=== PATIENT | male | born 1950 | race Caucasian/White ===

== ENCOUNTER 2019-05-21 09:57 | Outpatient (CLI) | payer OTHER | END 2019-05-21 19:21 | disposition home or self-care (01) | LOC: SRD 09:57 | PROVIDERS: ATTEND Internal Medicine | DX: I51.7 Cardiomegaly (principal); I70.90 Unspecified atherosclerosis | CPT/HCPCS: 71046-TC ==

== ENCOUNTER 2022-10-26 10:30 | Inpatient (IN) | payer OTHER ==
[~2022-10-26] VITALS: Ht 172.7 cm; Wt 89.4 kg
[2022-10-26 10:30] VITALS: BP_SYST 162
[2022-10-26 11:18] LABS: BASOPHILS % (AUTO) 0.3 % (0.0-2.0); EOSINOPHILS # (AUTO) 0.1 K/uL (0.0-0.4); EOSINOPHILS % (AUTO) 0.9 % (0.0-4.0); HEMATOCRIT 35.3 % (36-54); LYMPHOCYTES # (AUTO) 0.8 K/uL (1.0-5.5); LYMPHOCYTES % (AUTO) 9.4 % (20.5-51.5); MEAN CORPUSCULAR HEMOGLOBIN 29 pg (27-31); MEAN CORPUSCULAR HGB CONC 34 % (32-36); MEAN CORPUSCULAR VOLUME 87 fL (79.0-98.0); MONOCYTES # (AUTO) 0.5 K/uL (0.0-1.0); NEUTROPHILS # (AUTO) 6.8 K/uL (1.8-7.7); NEUTROPHILS % (AUTO) 83.4 % (40.0-70.0); PLATELET COUNT (AUTO) 197 K/uL (130-430); RED BLOOD CELL COUNT(AUTO) 4.08 MIL/uL (4.2-6.2); RED CELL DISTRIBUTION WIDTH 14.6 % (9.0-15.0); WHITE BLOOD COUNT (AUTO) 8.2 K/uL (4.8-10.8)
[2022-10-26 11:33] LABS: ANION GAP 10 (5-15); CALCIUM 8.7 mg/dL (8.4-11.0); CHLORIDE 107 mmol/L (98-107); CREATININE 1.29 mg/dL (0.55-1.30); GLUCOSE 137 mg/dL (70-99); UREA NITROGEN, BLOOD 22 mg/dL (8-21)
[2022-10-26] MEDS ORDERED: HYDR-4039 PO (11:46)
[2022-10-26] MEDS ORDERED: AMLO10TA88 PO (11:46)
[2022-10-26] MEDS ORDERED: FURO40TA5 PO (11:46)
[2022-10-26] MEDS ORDERED: FEBU40TA3 PO (11:46)
[2022-10-26] MEDS ORDERED: METO-542 PO (11:46)
[2022-10-26] MEDS ORDERED: CLOP75TA32 PO (11:46)
[2022-10-26] MEDS ORDERED: BECL10.62 INH (11:46)
[2022-10-26] MEDS ORDERED: FLUT1BLS11 PO (11:46)
[2022-10-26] MEDS ORDERED: SACU1TAB7 PO (11:46)
[2022-10-26] MEDS ORDERED: ATOR40TA68 PO (11:46)
[2022-10-26] MEDS ORDERED: POTA-197 PO (11:46)
[2022-10-26 11:51] LABS: INR 1.1 (0.80-1.20); PROTHROMBIN TIME 11.8 SECS (9.5-12.5)
[2022-10-26 11:52] LABS: ALANINE AMINOTRANSFERASE 28 U/L (12-78); ASPARTATE AMINOTRANSFERASE 22 U/L (10-37); PHOSPHORUS 3.7 mg/dL (2.7-4.5); TOTAL BILIRUBIN 2.5 mg/dL (0.0-1.0)
[2022-10-26] MEDS ORDERED: FUROSEMIDE 40 MG/4 ML VIAL IVP ONE (12:00)
[2022-10-26] MEDS ORDERED: ASPIRIN 81 MG TAB.CHEW PO ONE (12:15)
[2022-10-26] MEDS ORDERED: amLODIPine BESYLATE 10 MG TABLET PO ONE (15:00)
[2022-10-26] MEDS ORDERED: FUROSEMIDE 100 MG in D5W 90 ML IV ONE (15:30)
[2022-10-26 16:10] VITALS: BP_SYST 163
[2022-10-26 16:22] VITALS: BP_SYST 165
[2022-10-26] MEDS ORDERED: METOPROLOL TARTRATE 5 MG/5 ML VIAL IVP ONE (17:00)
[2022-10-26] MEDS ORDERED: FEBUXOSTAT PO SCH (17:15)
[2022-10-26 17:17] VITALS: BP_SYST 163
[2022-10-26 18:40] VITALS: BP_SYST 150
[2022-10-26 20:00] VITALS: BP_SYST 157
[2022-10-26] MEDS: APIXABAN 2.5 MG TABLET PO SCH (20:13)
[2022-10-26] MEDS: POTASSIUM CHLORIDE 20 MEQ TAB.PRT.SR PO SCH (20:13)
[2022-10-26] MEDS: ALBUTEROL SULFATE 0.083% 2.5 MG/3 ML VIAL.NEB INH SCH (20:14)
[2022-10-26] MEDS: SACUBITRIL/VALSARTAN 24 MG-26 MG 1 TABLET PO SCH (20:14)
[2022-10-26] MEDS: hydrALAZINE HCL 25 MG TABLET PO SCH (20:14)
[2022-10-26] MEDS: BUDESONIDE 0.5 MG/2 ML AMPUL.NEB INH SCH (20:15)
[2022-10-26] MEDS ORDERED: ACETAMINOPHEN 325 MG TABLET PO PRN (20:45)
[2022-10-26] MEDS ORDERED: SACUBITRIL PO SCH (21:00)
[2022-10-26] MEDS ORDERED: FLUTICASONE 250 mCg/SALMETEROL 50 mCg DISKUS W.DEV INH SCH (21:00)
[2022-10-26] MEDS ORDERED: VALSARTAN PO SCH (21:00)
[2022-10-27] VITALS (8 sets, daily range): BP systolic 135–174
[2022-10-27] MEDS: ALBUTEROL SULFATE 0.083% 2.5 MG/3 ML VIAL.NEB INH SCH ×4 (01:12→23:20)
[2022-10-27 05:56] LABS: BASOPHILS % (AUTO) 0.3 % (0.0-2.0); EOSINOPHILS # (AUTO) 0.1 K/uL (0.0-0.4); EOSINOPHILS % (AUTO) 0.6 % (0.0-4.0); HEMATOCRIT 34.4 % (36-54); HEMOGLOBIN 11.5 g/dL (14.0-18.0); LYMPHOCYTES # (AUTO) 0.9 K/uL (1.0-5.5); LYMPHOCYTES % (AUTO) 9.1 % (20.5-51.5); MEAN CORPUSCULAR HEMOGLOBIN 29 pg (27-31); MEAN CORPUSCULAR HGB CONC 34 % (32-36); MEAN CORPUSCULAR VOLUME 87 fL (79.0-98.0); MONOCYTES # (AUTO) 0.6 K/uL (0.0-1.0); MONOCYTES % (AUTO) 5.8 % (1.7-9.3); NEUTROPHILS # (AUTO) 8.8 K/uL (1.8-7.7); NEUTROPHILS % (AUTO) 84.2 % (40.0-70.0); PLATELET COUNT (AUTO) 200 K/uL (130-430); RED BLOOD CELL COUNT(AUTO) 3.95 MIL/uL (4.2-6.2); RED CELL DISTRIBUTION WIDTH 15.1 % (9.0-15.0); WHITE BLOOD COUNT (AUTO) 10.4 K/uL (4.8-10.8)
[2022-10-27 06:47] LABS: ANION GAP 12 (5-15); CALCIUM 8.1 mg/dL (8.4-11.0); CHLORIDE 107 mmol/L (98-107); CREATININE 1.27 mg/dL (0.55-1.30); FREE T4 (FREE THYROXINE) 1.3 ng/dL (0.6-1.6); GLUCOSE 131 mg/dL (70-99); UREA NITROGEN, BLOOD 20 mg/dL (8-21)
[2022-10-27] MEDS: BUDESONIDE 0.5 MG/2 ML AMPUL.NEB INH SCH ×2 (08:07→23:21)
[2022-10-27] MEDS: FEBUXOSTAT 40 MG PO SCH (09:00)
[2022-10-27] MEDS ORDERED: FUROSEMIDE 40 MG TABLET PO SCH (09:00)
[2022-10-27] MEDS: POTASSIUM CHLORIDE 20 MEQ TAB.PRT.SR PO SCH ×4 (09:06→21:08)
[2022-10-27] MEDS: APIXABAN 2.5 MG TABLET PO SCH ×2 (09:08→21:09)
[2022-10-27] MEDS: CLOPIDOGREL BISULFATE 75 MG TABLET PO SCH (09:09)
[2022-10-27] MEDS: METOPROLOL SUCCINATE 50 MG TAB.SR.24H (TOPROL XL) PO SCH (09:09)
[2022-10-27] MEDS: ATORVASTATIN 20 MG TABLET PO SCH (09:10)
[2022-10-27] MEDS: amLODIPine BESYLATE 10 MG TABLET PO SCH ×2 (09:10→09:28)
[2022-10-27] MEDS: hydrALAZINE HCL 25 MG TABLET PO SCH ×3 (09:11→21:08)
[2022-10-27] MEDS: SACUBITRIL/VALSARTAN 24 MG-26 MG 1 TABLET PO SCH ×2 (09:14→21:09)
[2022-10-27] MEDS: SILDENAFIL CITRATE 20 MG TABLET PO SCH ×2 (15:04→21:08)
[2022-10-28 00:27] VITALS: BP_SYST 137
[2022-10-28] MEDS: ALBUTEROL SULFATE 0.083% 2.5 MG/3 ML VIAL.NEB INH SCH ×3 (01:40→13:44)
[2022-10-28] MEDS: BUDESONIDE 0.5 MG/2 ML AMPUL.NEB INH SCH (07:38)
[2022-10-28 08:00] VITALS: BP_SYST 145
[2022-10-28 08:03] VITALS: BP_SYST 161
[2022-10-28] MEDS: FEBUXOSTAT 40 MG PO SCH (09:00)
[2022-10-28] MEDS: ATORVASTATIN 20 MG TABLET PO SCH (10:22)
[2022-10-28] MEDS: hydrALAZINE HCL 25 MG TABLET PO SCH ×2 (10:26→16:31)
[2022-10-28] MEDS: SILDENAFIL CITRATE 20 MG TABLET PO SCH ×2 (10:27→16:32)
[2022-10-28] MEDS: METOPROLOL SUCCINATE 50 MG TAB.SR.24H (TOPROL XL) PO SCH (10:27)
[2022-10-28] MEDS: POTASSIUM CHLORIDE 20 MEQ TAB.PRT.SR PO SCH ×2 (10:28→16:31)
[2022-10-28] MEDS: CLOPIDOGREL BISULFATE 75 MG TABLET PO SCH (10:28)
[2022-10-28] MEDS: amLODIPine BESYLATE 10 MG TABLET PO SCH (10:29)
[2022-10-28] MEDS: SACUBITRIL/VALSARTAN 24 MG-26 MG 1 TABLET PO SCH (10:30)
[2022-10-28] MEDS ORDERED: FUROSEMIDE 40 MG TABLET PO ONE (10:30)
[2022-10-28] MEDS: APIXABAN 2.5 MG TABLET PO SCH (10:31)
[2022-10-28 11:22] VITALS: BP_SYST 130
[2022-10-28] MEDS ORDERED: FUROSEMIDE 40 MG TABLET PO SCH (14:00)
[2022-10-28 15:14] VITALS: BP_SYST 145
[2022-10-28] MEDS ORDERED: SILD20TA PO (15:59)
[2022-10-28] MEDS ORDERED: FURO40TA5 PO (15:59)
[2022-10-28] MEDS ORDERED: SACU1TAB PO (15:59)
[2022-10-28] MEDS ORDERED: APIX5TAB PO (15:59)
[2022-10-28 17:38] VITALS: BP_SYST 145
[2022-10-29] MEDS ORDERED: FUROSEMIDE 40 MG TABLET PO SCH (21:00)
== END 2022-10-28 18:05 | disposition home or self-care (01) | DRG 291 ==
LOC: SED 10:30 → STU 13:15
PROVIDERS: ADMIT Specialist; ATTEND Specialist
DX: I11.0 Hypertensive heart disease with heart failure (principal); I50.43 Acute on chronic combined systolic (congestive) and diastolic (congestive) heart failure; J96.00 Acute respiratory failure, unspecified whether with hypoxia or hypercapnia; I08.1 Rheumatic disorders of both mitral and tricuspid valves; Z20.822 Contact with and (suspected) exposure to COVID-19; I25.10 Atherosclerotic heart disease of native coronary artery without angina pectoris; I27.20 Pulmonary hypertension, unspecified; I48.91 Unspecified atrial fibrillation; Z95.5 Presence of coronary angioplasty implant and graft
CPT/HCPCS: 36415; 71045; 80048; 80053; 83735; 83880; 84100; 84439; 84443; 84484; 85025; 85610-TC; 93005; 93306; 94640; 94760; 96374; 97163-GP; 99285; G0378; J1940; J3490; J7060; J7613; J7626